=== PATIENT | female | born 1985 | race Caucasian/White ===

== ENCOUNTER → 2016-08-18 | Outpatient (CLI) | payer OTHER ==
[~2016-08-18] MED LIST: OMNIPAQUE 300 MG/ML, 10ML VIAL ONE
== END | disposition home or self-care (01) ==
LOC: CFH 07:08
PROVIDERS: ATTEND Obstetrics & Gynecology
DX: Z31.69 Encounter for other general counseling and advice on procreation (principal); N80.9 Endometriosis, unspecified; N83.201 Unspecified ovarian cyst, right side; N83.202 Unspecified ovarian cyst, left side; N97.9 Female infertility, unspecified
CPT/HCPCS: 74740; 76830; Q9967

== ENCOUNTER → 2017-01-18 | Outpatient (CLI) | payer OTHER ==
[2017-01-18 11:08] LABS: HEMATOCRIT 42.7 % (34.6-47.8); HEMOGLOBIN 14.8 g/dL (11.7-16.4); WHITE BLOOD COUNT 12.8 x10^3/uL (3.4-10)
[2017-01-18 11:24] LABS: HIV 1&2 ANTIBODY SCREEN Nonreactive (Nonreactive)
[2017-01-18 11:25] LABS: HIV-1 p24 ANTIGEN Nonreactive (Nonreactive)
[2017-01-22 19:06] LABS: DIA MoM 0.91 (.); DIA VALUE 143.86 pg/mL (.); DSR (BY AGE) 1 IN 382 (.); DSR (SECOND TRIMESTER) 1 IN 1289 (.); HCG VALUE 45008 mIU/mL (.); MULTIPLE GESTATION No (.); T18 RISK Not increased (.); TEST RESULTS *Screen Negative* (.); UE3 VALUE 0.69 ng/mL (.); WEIGHT 192 lbs (.)
== END | disposition home or self-care (01) ==
LOC: LAB 10:38
PROVIDERS: ATTEND Obstetrics & Gynecology
DX: Z34.82 Encounter for supervision of other normal pregnancy, second trimester (principal)
CPT/HCPCS: 36415; 81220; 82105; 82677; 84702; 85025; 86336; 86592; 86703; 86762; 86803; 86850; 86900; 87086; 87340; 87899; G0435

== ENCOUNTER 2017-02-09 09:22 | Emergency (ER) | payer OTHER ==
[~2017-02-09] VITALS: Ht 170.2 cm; Wt 87.0 kg
[2017-02-09 09:57] LABS: HEMATOCRIT 41.9 % (34.6-47.8); HEMOGLOBIN 14.3 g/dL (11.7-16.4); WHITE BLOOD COUNT 8.8 x10^3/uL (3.4-10)
[2017-02-09] MEDS ORDERED: SODIUM CHLORIDE 0.9% 1,000ML IVBOLUS ONE (10:00)
[2017-02-09] MEDS ORDERED: SODIUM CHLORIDE FLUSH 10ML SYR IVF ONE (10:00)
[2017-02-09] MEDS ORDERED: PLEASE ENTER HEIGHT AND WEIGHT MC SCH (10:00)
[2017-02-09 10:08] LABS: BLOOD UREA NITROGEN 6 mg/dL (7-18)
[2017-02-09 10:16] LABS: IS PT STATUS REG ER OR PRE ER? YES
[2017-02-09] MEDS ORDERED: IBUPROFEN 200 MG TABLET PO ONE (10:30)
[2017-02-09] MEDS ORDERED: IBUPROFEN 200 MG TABLET ONE (10:32)
[2017-02-09] MEDS ORDERED: ONDANSETRON 2MG/ML, 2ML ONE (10:40)
[2017-02-09] MEDS ORDERED: OMNIPAQUE 350 MG/ML, 100ML BOTTLE ONE (11:11)
[2017-02-09 12:20] VITALS: BP 107/59
== END 2017-02-09 12:56 | disposition home or self-care (01) ==
LOC: ED 10:02
DX: O23.12 Infections of bladder in pregnancy, second trimester (principal); O26.892 Other specified pregnancy related conditions, second trimester; R07.2 Precordial pain; Z3A.22 22 weeks gestation of pregnancy
CPT/HCPCS: 36415; 71010; 71275; 80048; 81001; 82040; 83880; 84484; 85025; 85379; 87086; 93005; 96360; 96361; 99285; J7030; Q9967

== ENCOUNTER → 2017-03-24 | Outpatient (CLI) | payer OTHER ==
[2017-03-24 12:29] LABS: MEAN CORPUSCULAR HEMOGLOBIN 31.1 pg (27.0-34.8); MEAN CORPUSCULAR HGB CONC 34.1 g/dL (32.4-35.8); MEAN CORPUSCULAR VOLUME 91.3 fL (80-100); MEAN PLATELET VOLUME 7.4 fL (7.4-10.4); PLATELET COUNT 258 x10^3/uL (130-400); RED BLOOD COUNT 4.38 x10^6/uL (3.82-5.3); RED CELL DISTRIBUTION WIDTH 14.2 % (9.6-15.2)
== END ==
LOC: LAB 11:14
PROVIDERS: ATTEND Obstetrics & Gynecology
DX: Z34.82 Encounter for supervision of other normal pregnancy, second trimester (principal); Z3A.00 Weeks of gestation of pregnancy not specified
CPT/HCPCS: 36415; 82950; 85027; 86592

== ENCOUNTER → 2017-04-02 | Outpatient (CLI) | payer OTHER ==
[2017-04-02 10:41] LABS: MICROSCOPIC INDICATED
[2017-04-02 11:07] LABS: CULTURE INDICATED? YES
== END | disposition home or self-care (01) ==
LOC: LAB 09:32
PROVIDERS: ATTEND Obstetrics & Gynecology
DX: O23.40 Unspecified infection of urinary tract in pregnancy, unspecified trimester (principal); R30.0 Dysuria; Z3A.00 Weeks of gestation of pregnancy not specified
CPT/HCPCS: 81001; 87086

== ENCOUNTER 2017-04-30 17:09 | Outpatient (CLI) | payer OTHER ==
[~2017-04-30] VITALS: Ht 170.2 cm; Wt 93.6 kg
[2017-04-30] MEDS ORDERED: ONDA4TAB10 PO (17:20)
[2017-04-30] MEDS ORDERED: PREN1TAB60 PO (17:20)
[2017-04-30 17:43] VITALS: BP 126/72
[2017-04-30 17:48] LABS: MICROSCOPIC NOT IND
== END 2017-04-30 18:19 | disposition home or self-care (01) ==
LOC: LDOP 17:09
PROVIDERS: ATTEND Family Medicine
DX: O26.893 Other specified pregnancy related conditions, third trimester (principal); E86.0 Dehydration; Z3A.30 30 weeks gestation of pregnancy
CPT/HCPCS: 59025; 81003; 87086; 99211; P9612; G0463

== ENCOUNTER 2017-06-16 16:18 | Outpatient (CLI) | payer OTHER ==
[~2017-06-16] VITALS: Ht 170.2 cm; Wt 97.3 kg
[~2017-06-16 16:18] MED LIST changes: -OMNIPAQUE 300 MG/ML, 10ML VIAL ONE; +ONDA4TAB10 PO; +PREN1TAB60 PO
[2017-06-16 17:22] LABS: AMNISURE NEGATIVE (NEGATIVE)
[2017-06-16] MEDS ORDERED: LANS15CA60 PO (17:45)
== END 2017-06-16 18:20 | disposition home or self-care (01) ==
LOC: LDOP 16:18
PROVIDERS: ATTEND Obstetrics & Gynecology
DX: O42.92 Full-term premature rupture of membranes, unspecified as to length of time between rupture and onset of labor (principal); Z3A.37 37 weeks gestation of pregnancy
CPT/HCPCS: 59025; 84112; 99211; G0463

== ENCOUNTER 2017-06-30 06:19 | Inpatient (IN) | payer OTHER ==
[~2017-06-30] VITALS: Ht 170.2 cm; Wt 99.1 kg
[~2017-06-30 06:19] MED LIST changes: +LANS15CA60 PO
[2017-06-30] MEDS ORDERED: OXYTOCIN 30U/ 0.9% NaCL 500ML 500 ML IV ONE (06:29)
[2017-06-30] MEDS ORDERED: D5%-LACTATED RINGERS 1,000 ML IV SCH (06:29)
[2017-06-30] MEDS ORDERED: FENTANYL PF 100 MCG/2ML IV PRN (06:30)
[2017-06-30] MEDS ORDERED: FENTANYL PF 100 MCG/2ML IVPush PRN (06:30)
[2017-06-30] MEDS ORDERED: FENTANYL PF 100 MCG/2ML ONE (06:31)
[2017-06-30] MEDS: LACTATED RINGERS 1,000 ML IV SCH ×4 (06:37→16:56)
[2017-06-30] MEDS ORDERED: ONDANSETRON 2MG/ML, 2ML ONE (06:37)
[2017-06-30 06:45] VITALS: BP 146/83
[2017-06-30] MEDS ORDERED: NEWBORN KIT ONE (06:51)
[2017-06-30] MEDS ORDERED: OXYTOCIN 30U/ 0.9% NaCL 500ML 500 ML ONE ×2 (06:51→13:30)
[2017-06-30] MEDS ORDERED: LIDOCAINE-MPF 1%, 5ML ONE (06:52)
[2017-06-30] MEDS ORDERED: ONDANSETRON 2MG/ML, 2ML IVPush ONE (07:00)
[2017-06-30 07:03] LABS: BASOPHILS # (AUTO) 0.06 x10^3/uL (0-0.1); BASOPHILS % (AUTO) 0 % (0-1); EOSINOPHILS # (AUTO) 0.09 x10^3/uL (0-0.4); EOSINOPHILS % (AUTO) 1 % (1-7); LYMPHOCYTES % (AUTO) 12 % (22-44); MD NO; MEAN CORPUSCULAR HGB CONC 33.7 g/dL (32.4-35.8); MEAN CORPUSCULAR VOLUME 89.2 fL (80-100); MEAN PLATELET VOLUME 8.3 fL (7.4-10.4); MONOCYTES # (AUTO) 0.88 x10^3/uL (0.2-0.8); MONOCYTES % (AUTO) 6 % (2-9); NEUTROPHILS % (AUTO) 81 % (42-75); PLATELET COUNT 209 x10^3/uL (130-400); RED BLOOD COUNT 4.35 x10^6/uL (3.82-5.3)
[2017-06-30] MEDS ORDERED: FENTANYL/BUPIV./NS/PF 250 ML EPIDCONT ONE (07:09)
[2017-06-30] MEDS ORDERED: BUPIVACAINE 0.25% ONE ×2 (07:09→09:24)
[2017-06-30] MEDS ORDERED: FENTANYL/BUPIV./NS/PF 250 ML EPIDCONT SCH (08:56)
[2017-06-30] MEDS ORDERED: LACTATED RINGERS 1,000 ML IVBOLUS PRN (09:00)
[2017-06-30] MEDS ORDERED: EPHEDRINE 50 MG/ML, 1ML IVPush PRN (09:00)
[2017-06-30] MEDS ORDERED: OXYTOCIN 30U/ 0.9% NaCL 500ML 500 ML IV SCH (10:29)
[2017-06-30] MEDS ORDERED: MISOPROSTOL 200 MCG TABLET PR PRN (10:30)
[2017-06-30] MEDS ORDERED: HYDROcodone/APAP 5/325 TABLET PO PRN (10:30)
[2017-06-30] MEDS ORDERED: DOCUSATE 100 MG CAPSULE PO PRN (10:30)
[2017-06-30] MEDS ORDERED: ACETAMINOPHEN 325 MG TABLET PO PRN ×2 (10:30)
[2017-06-30] MEDS ORDERED: IBUPROFEN 600 MG TABLET ONE (11:31)
[2017-06-30] MEDS: IBUPROFEN 600 MG TABLET PO PRN ×2 (11:40→17:34)
[2017-06-30 15:45] VITALS: BP 113/65
[2017-06-30 18:38] LABS: BASOPHILS # (AUTO) 0.05 x10^3/uL (0-0.1); BASOPHILS % (AUTO) 0 % (0-1); EOSINOPHILS # (AUTO) 0.04 x10^3/uL (0-0.4); EOSINOPHILS % (AUTO) 0 % (1-7); LYMPHOCYTES # (AUTO) 1.54 x10^3/uL (1-3.4); LYMPHOCYTES % (AUTO) 9 % (22-44); MD NO; MEAN CORPUSCULAR HEMOGLOBIN 30.7 pg (27.0-34.8); MEAN CORPUSCULAR HGB CONC 33.8 g/dL (32.4-35.8); MEAN CORPUSCULAR VOLUME 90.9 fL (80-100); MEAN PLATELET VOLUME 8.1 fL (7.4-10.4); MONOCYTES # (AUTO) 0.86 x10^3/uL (0.2-0.8); MONOCYTES % (AUTO) 5 % (2-9); NEUTROPHILS # (AUTO) 14.45 x10^3/uL (1.8-6.8); NEUTROPHILS % (AUTO) 85 % (42-75); PLATELET COUNT 183 x10^3/uL (130-400); RED BLOOD COUNT 3.99 x10^6/uL (3.82-5.3); RED CELL DISTRIBUTION WIDTH 13.9 % (9.6-15.2)
[2017-06-30 19:30] VITALS: BP 112/69
[2017-06-30] MEDS: HYDROcodone/APAP 5/325 TABLET PO PRN (21:04)
[2017-07-01 00:30] VITALS: BP 120/72
[2017-07-01] MEDS: IBUPROFEN 600 MG TABLET PO PRN ×3 (00:37→13:38)
[2017-07-01 03:30] VITALS: BP 117/83
[2017-07-01] MEDS: HYDROcodone/APAP 5/325 TABLET PO PRN ×3 (03:33→13:38)
[2017-07-01 08:00] VITALS: BP 114/71
[2017-07-01] MEDS ORDERED: PRENATAL VIT/IRON/FA 1 EACH TABLET PO SCH (09:00)
[2017-07-01] MEDS ORDERED: IBUP-1223 PO (10:27)
[2017-07-01] MEDS ORDERED: HYDR-3240 PO (10:28)
[2017-07-01] MEDS ORDERED: DIPH,PERTUSS(ACELL),TET VAC/PF NC IM-VACC ONE ×2 (11:03→11:30)
== END 2017-07-01 13:55 | disposition home or self-care (01) | DRG 775 ==
LOC: LDIP 06:19 → 2NW 15:42
PROVIDERS: ADMIT Obstetrics & Gynecology; ATTEND Obstetrics & Gynecology
PROC: 10E0XZZ Delivery of Products of Conception, External Approach (ICD-10-PCS; principal; 2017-06-30)
PROC: 10907ZC Drainage of Amniotic Fluid, Therapeutic from Products of Conception, Via Natural or Artificial Opening (ICD-10-PCS; 2017-06-30)
PROC: 0HQ9XZZ Repair Perineum Skin, External Approach (ICD-10-PCS; 2017-06-30)
PROC: 3E0R3BZ Introduction of Anesthetic Agent into Spinal Canal, Percutaneous Approach (ICD-10-PCS; 2017-06-30)
PROC: 00HU33Z Insertion of Infusion Device into Spinal Canal, Percutaneous Approach (ICD-10-PCS; 2017-06-30)
DX: O69.81X0 Labor and delivery complicated by cord around neck, without compression, not applicable or unspecified (principal); O70.0 First degree perineal laceration during delivery; Z37.0 Single live birth; O77.0 Labor and delivery complicated by meconium in amniotic fluid; Z3A.39 39 weeks gestation of pregnancy; Z23 Encounter for immunization
CPT/HCPCS: 36415; 85025; 86850; 86900; 90715; 96374; J2590; J3010; J7120

== ENCOUNTER → 2018-05-25 | Outpatient (CLI) | payer OTHER ==
[~2018-05-25] MED LIST changes: +HYDR-3240 PO; +IBUP-1223 PO
== END | disposition home or self-care (01) ==
LOC: CFH 12:24
PROVIDERS: ATTEND Obstetrics & Gynecology
DX: N83.202 Unspecified ovarian cyst, left side (principal); N83.201 Unspecified ovarian cyst, right side; N64.4 Mastodynia
CPT/HCPCS: 76641; 76830; 77066; G0279

== ENCOUNTER → 2019-03-30 | Outpatient (CLI) | payer OTHER | END | disposition home or self-care (01) | LOC: CFH 07:59 | PROVIDERS: ATTEND Family Medicine | DX: M51.37 Other intervertebral disc degeneration, lumbosacral region (principal); M48.07 Spinal stenosis, lumbosacral region | CPT/HCPCS: 72120; 72148 ==

== ENCOUNTER 2019-08-16 09:31 | Outpatient (CLI) | payer OTHER | END 2019-08-16 23:59 | disposition home or self-care (01) | LOC: CFH 09:31 | PROVIDERS: ATTEND Physician Assistant | DX: N64.4 Mastodynia (principal) | CPT/HCPCS: 76642; 77066; G0279 ==

== ENCOUNTER 2019-08-28 07:27 | Outpatient (CLI) | payer OTHER ==
[2019-08-28 07:51] LABS: BASOPHILS # (AUTO) 0.02 x10^3/uL (0-0.1); BASOPHILS % (AUTO) 1 % (0-1); EOSINOPHILS # (AUTO) 0.16 x10^3/uL (0-0.4); EOSINOPHILS % (AUTO) 3 % (1-7); LYMPHOCYTES # (AUTO) 1.66 x10^3/uL (1-3.4); LYMPHOCYTES % (AUTO) 31 % (22-44); MD NO; MEAN CORPUSCULAR HEMOGLOBIN 30.5 pg (27.0-34.8); MEAN CORPUSCULAR HGB CONC 34.2 g/dL (32.4-35.8); MEAN CORPUSCULAR VOLUME 89.1 fL (80-100); MEAN PLATELET VOLUME 7.8 fL (7.4-10.4); MONOCYTES # (AUTO) 0.36 x10^3/uL (0.2-0.8); MONOCYTES % (AUTO) 7 % (2-9); NEUTROPHILS # (AUTO) 3.19 x10^3/uL (1.8-6.8); NEUTROPHILS % (AUTO) 59 % (42-75); PLATELET COUNT 256 x10^3/uL (130-400)
[2019-08-28 07:52] LABS: ALANINE AMINOTRANSFERASE 19 U/L (12-78); ALBUMIN 3.9 g/dL (3.4-5.0); ANION GAP 9 mmol/L (5-15); C-REACTIVE PROTEIN, QUANT 0.17 mg/dL (0.02-0.49); CALCIUM 8.6 mg/dL (8.5-10.1); CHLORIDE 108 mmol/L (98-107); CHOLESTEROL, TOTAL 161 mg/dL (140-239); CREATININE 0.93 mg/dL (0.55-1.02)
[2019-08-28 08:01] LABS: ALKALINE PHOSPHATASE 67 U/L (45-117); BILIRUBIN,TOTAL 0.5 mg/dL (0.2-1.0); CHOL/HDL RATIO 2.6; HDL CHOL % 39 % (28-40); HDL CHOLESTEROL (DIRECT) 63 mg/dL (40-60); LDL CHOLESTEROL,CALCULATED 89 mg/dL (54-169); LDL/HDL RATIO 1.4 (0.5-3.0); TOTAL PROTEIN 7.3 g/dL (6.4-8.2); TRIGLYCERIDES 44 mg/dL (50-200); VLDL CHOLESTEROL 9 mg/dL (0-25)
[2019-08-28 09:12] LABS: HCT (SEDRATE) 40.1 % (34.6-47.8)
== END 2019-08-28 23:59 | disposition home or self-care (01) ==
LOC: LAB 07:27
PROVIDERS: ATTEND Nurse Practitioner
DX: Z00.00 Encounter for general adult medical examination without abnormal findings (principal); R53.82 Chronic fatigue, unspecified; M25.571 Pain in right ankle and joints of right foot
CPT/HCPCS: 36415; 80053; 80061; 84439; 84443; 85025; 85651; 86038; 86140; 86200; 86431

== ENCOUNTER → 2019-08-30 | Outpatient (CLI) | payer OTHER | END | disposition home or self-care (01) | LOC: CVU 07:46 | PROVIDERS: ATTEND Internal Medicine Cardiovascular Disease | DX: I35.1 Nonrheumatic aortic (valve) insufficiency (principal) | CPT/HCPCS: 93306 ==

== ENCOUNTER 2019-12-07 12:20 | Day surgery (SDC) | payer OTHER ==
[2019-12-04 16:24] LABS: BASOPHILS # (AUTO) 0.02 x10^3/uL (0-0.1); BASOPHILS % (AUTO) 0 % (0-1); EOSINOPHILS # (AUTO) 0.27 x10^3/uL (0-0.4); EOSINOPHILS % (AUTO) 3 % (1-7); LYMPHOCYTES # (AUTO) 2.57 x10^3/uL (1-3.4); LYMPHOCYTES % (AUTO) 27 % (22-44); MD NO; MEAN CORPUSCULAR HEMOGLOBIN 30.3 pg (27.0-34.8); MEAN CORPUSCULAR HGB CONC 33.5 g/dL (32.4-35.8); MEAN CORPUSCULAR VOLUME 90.5 fL (80-100); MEAN PLATELET VOLUME 8.5 fL (7.4-10.4); MONOCYTES # (AUTO) 0.51 x10^3/uL (0.2-0.8); MONOCYTES % (AUTO) 6 % (2-9); NEUTROPHILS # (AUTO) 6.01 x10^3/uL (1.8-6.8); NEUTROPHILS % (AUTO) 64 % (42-75); PLATELET COUNT 249 x10^3/uL (130-400); RED BLOOD COUNT 4.63 x10^6/uL (3.82-5.3); RED CELL DISTRIBUTION WIDTH 12.9 % (9.6-15.2)
[~2019-12-07] VITALS: Ht 170.2 cm; Wt 89.2 kg
[~2019-12-07 12:20] MED LIST changes: +BACITRACIN 50,000 UNIT ONE; +BUPIVACAINE/PF 0.5% ONE; +CEFAZOLIN 1,000 MG ONE; +EPINEPHRINE 1 MG/ML, 1ML ONE; +GENTAMICIN 80 MG/2 ML ONE; +LIDOCAINE-MPF 2% ,5ML ONE; +SODIUM BICARBONATE 1 MEQ/ML, 50ML VIAL ONE
[2019-12-07] MEDS ORDERED: LACTATED RINGERS 1,000 ML IV ONE (12:45)
[2019-12-07] MEDS ORDERED: CHLORHEXIDINE 15 ML UDC MM STA (12:45)
[2019-12-07] MEDS ORDERED: MIDAZOLAM 1 MG/ML, 2ML ONE (12:46)
[2019-12-07] MEDS ORDERED: FENTANYL PF 250 MCG/5ML ONE (12:46)
[2019-12-07 12:47] VITALS: BP 136/80
[2019-12-07] MEDS ORDERED: SCOPOLAMINE 1MG PATCH TD ONE (13:53)
[2019-12-07] MEDS ORDERED: SCOPOLAMINE 1MG PATCH TD SCH (14:00)
[2019-12-07] MEDS ORDERED: SUCCINYLCHOLINE 20 MG/ML, 10ML ONE (14:18)
[2019-12-07] MEDS ORDERED: LIDOCAINE PF 2%, 5ML ONE (14:18)
[2019-12-07] MEDS ORDERED: PROPOFOL 10 MG/ML, 20ML ONE (14:18)
[2019-12-07] MEDS ORDERED: CEFAZOLIN 1,000 MG ONE (14:18)
[2019-12-07] MEDS ORDERED: ONDANSETRON 2MG/ML, 2ML ONE ×2 (14:18→16:38)
[2019-12-07] MEDS ORDERED: NEOSTIGMINE 1 MG/ML, 10ML ONE (14:18)
[2019-12-07] MEDS ORDERED: ROCURONIUM 10 MG/ML,10ML ONE (14:18)
[2019-12-07] MEDS ORDERED: DEXAMETHASONE 4 MG/ML, 1ML ONE (14:18)
[2019-12-07] MEDS ORDERED: GLYCOPYRROLATE 0.2MG/1ML, 5ML ONE (14:18)
[2019-12-07] MEDS ORDERED: HYDROmorphone 1 MG/ML, 1ML INJ IVPush PRN (15:00)
[2019-12-07] MEDS ORDERED: ACETAMINOPHEN 325 MG TABLET PO PRN (15:00)
[2019-12-07] MEDS ORDERED: OXYcodone 5 MG/5 ML ORAL.SOL UDC PO PRN (15:00)
[2019-12-07] MEDS ORDERED: PROMETHAZINE 25 MG/ML, 1ML IVPush PRN (15:00)
[2019-12-07] MEDS ORDERED: ONDANSETRON 2MG/ML, 2ML IVPush PRN ×2 (15:00→18:30)
[2019-12-07] MEDS ORDERED: DIAZEPAM 5 MG/ML, 2ML IVPush PRN (15:00)
[2019-12-07] MEDS ORDERED: DIPHENHYDRAMINE 50 MG/ML, 1ML IVPush PRN (15:00)
[2019-12-07] MEDS ORDERED: PROMETHAZINE 25 MG/ML, 1ML ONE (16:38)
[2019-12-07] MEDS ORDERED: MEPERIDINE/PF 25MG/ML,1ML ONE ×2 (16:38→17:32)
[2019-12-07] MEDS: MEPERIDINE/PF 25MG/0.5ML IVPush PRN ×2 (16:40→17:35)
[2019-12-07] MEDS ORDERED: FENTANYL PF 100 MCG/2ML ONE (16:53)
[2019-12-07] MEDS: FENTANYL PF 100 MCG/2ML IV PRN ×2 (16:55→17:05)
[2019-12-07] MEDS ORDERED: PROMETHAZINE 25 MG/ML, 1ML IM PRN (19:30)
== END 2019-12-07 19:25 | disposition home or self-care (01) ==
LOC: OUT 12:20
PROVIDERS: ATTEND Plastic Surgery
DX: Z45.811 Encounter for adjustment or removal of right breast implant (principal); Z20.828 Contact with and (suspected) exposure to other viral communicable diseases; Z45.812 Encounter for adjustment or removal of left breast implant; N62 Hypertrophy of breast; N64.4 Mastodynia; M54.2 Cervicalgia; M54.9 Dorsalgia, unspecified; R21 Rash and other nonspecific skin eruption; Z88.8 Allergy status to other drugs, medicaments and biological substances; Z90.49 Acquired absence of other specified parts of digestive tract; Z98.890 Other specified postprocedural states; Z83.3 Family history of diabetes mellitus; Z82.49 Family history of ischemic heart disease and other diseases of the circulatory system; Z80.8 Family history of malignant neoplasm of other organs or systems
CPT/HCPCS: 15877; 19318; 36415; 84703; 85025; 87635; 88305; C1729; J0171; J0330; J0690; J1100; J1580; J2175; J2250; J2405; J2550; J2704; J2710; J3010; J7120